=== PATIENT | male | born 1985 | race Caucasian/White ===

== ENCOUNTER 2018-02-22 22:42 | Emergency (ER) | payer OTHER ==
[2018-02-22] MEDS ORDERED: Cyclobenzaprine 10 MG ONE (23:10)
[2018-02-22] MEDS ORDERED: TORAdol 30 mg Injection ONE (23:10)
--- NOTE | 2018-02-22 23:12 | ERPHSYRPT ---
- History of Present Illness Time Seen by Provider: 02/22/18 23:01 Source: patient Exam Limitations: no limitations Patient Subjective Stated Complaint: pt states he was tarring a roof at approx 2044 this pm, stepped back and tripped over tar bucket, fell backwards off roof , approx 9', landing on lower back/sacrum; co pain radiating down both legs. Triage Nursing Assessment: pt a&o x3; skin p, w, & d; ambulated to room per self ; no obvious deformity noted; denies any loss of feeling/sensation in either leg / Physician History: 33 y/o male comes to the ER with complaints of lower back pain and right elbow pain after falling off a roof that was 10 feet high. Pt describes the pain as sharp, constant, 8/10, worse with movement, with radiation down his legs and not relieved by tylenol. No LOC. Occurred: just prior to arrival Reason for Fall: slipped, fell from height Injuries/Pain Location: upper extremity, back Loss of Consciousness: no loss of consciousness Quality: sharpness Severity of Pain-Max: severe Severity of Pain-Current: severe Modifying Factors: Improves With: nothing Associated Symptoms (Fall): denies symptoms Allergies/Adverse Reactions: coconut Allergy (Severe, Verified 02/22/18 22:58) Difficulty Breathing Penicillins Allergy (Severe, Verified 02/22/18 22:58) Difficulty Breathing Hx Tetanus, Diphtheria Vaccination/Date Given: No Hx Influenza Vaccination/Date Given: No Hx Pneumococcal Vaccination/Date Given: No Immunizations Up to Date: No - Review of Systems Constitutional: No Fever, No Chills Eyes: No Symptoms Ears, Nose, & Throat: No Symptoms Respiratory: No Cough, No Dyspnea Cardiac: No Chest Pain, No Edema, No Syncope Abdominal/Gastrointestinal: No Abdominal Pain, No Nausea, No Vomiting, No Diarrhea Genitourinary Symptoms: No Dysuria Musculoskeletal: Back Pain, Joint Pain, No Neck Pain Skin: No Rash Neurological: No Dizziness, No Focal Weakness, No Sensory Changes Psychological: No Symptoms Endocrine: No Symptoms All Other Systems: Reviewed and Negative - Past Medical History Pertinent Past Medical History: No - Past Surgical History Past Surgical History: Yes Musculoskeletal: Orthopedic Surgery - Social History Smoking Status: Current every day smoker How long have you smoked: 23 Exposure to second hand smoke: No Drug Use: none Patient Lives Alone: No - Nursing Vital Signs Nursing Vital Signs: Initial Vital Signs Temperature 98.5 F 02/22/18 22:48 Pulse Rate 62 02/22/18 22:48 Respiratory Rate 16 02/22/18 22:48 Blood Pressure 152/87 02/22/18 22:48 O2 Sat by Pulse Oximetry 98 02/22/18 22:48 Pain Scale Pain Intensity 0 - Curran Coma Score Best Eye Response (Tasha): (4) open spontaneously Best Verbal Response (Curran): (5) oriented Best Motor Response (Curran): (6) obeys commands Tasha Total: 15 - Physical Exam General Appearance: no apparent distress, alert Head Injury: no evidence of injury Eye Exam: PERRL/EOMI ENT Exam: airway nml Neck Exam: normal inspection, No tenderness Respiratory/Chest Exam: normal breath sounds, No chest tenderness, No respiratory distress Cardiovascular Exam: normal heart sounds, regular rate/rhythm Gastrointestinal Exam: soft, No tenderness, No distention, No guarding, No ecchymosis Back Exam: decreased range of motion, point tenderness, No vertebral tenderness Extremity Exam: normal inspection, pelvis stable, limited range of motion, pain with movement, tenderness, No deformities Neurologic Exam: alert, 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, cooperative, sensation nml, No motor deficits Skin Exam: normal color, warm, dry SpO2: 98 Oxygen Delivery: Room Air - Course Nursing assessment & vital signs reviewed: Yes Ordered Tests: Active Orders 24 hr Category Date Time Status CERVICAL SPINE WO CONTRAST [CT] Stat Exams 02/22/18 23:06 Taken ELBOW (2 VIEW) Stat Exams 02/22/18 23:06 Taken HEAD WITHOUT CONTRAST [CT] Stat Exams 02/22/18 23:06 Taken LUMBAR SPINE W/O [CT] Stat Exams 02/22/18 23:06 Taken THORACIC SPINE W/O CONTRAST [CT] Stat Exams 02/22/18 23:06 Taken Medication Summary Discontinued Medications Generic Name Dose Route Start Last Admin Trade Name Freq PRN Reason Stop Dose Admin Cyclobenzaprine HCl 10 mg 02/22/18 23:08 02/22/18 23:15 Cyclobenzaprine 10 Mg PO 02/22/18 23:09 10 mg STAT ONE Administration Cyclobenzaprine HCl Confirm 02/22/18 23:10 Cyclobenzaprine 10 Mg Administered 02/22/18 23:11 Dose 10 mg .ROUTE .STK-MED ONE Ketorolac Tromethamine 60 mg 02/22/18 23:08 02/22/18 23:15 Toradol 30 Mg Injection IM 02/22/18 23:09 60 mg STAT ONE Administration Ketorolac Tromethamine Confirm 02/22/18 23:10 Toradol 30 Mg Injection Administered 02/22/18 23:11 Dose 60 mg .ROUTE .STK-MED ONE - Progress Progress: improved Progress Note: 02/23/18 00:[address] scan head, cervical spine, thoracic spine and lumbar spine are all within normal limits. The x ray of the elbow is also negative. Pt will be d/c home on toradol and flexeril. - Departure Time of Disposition: 00:49 Departure Disposition: Home Clinical Impression: Back pain Qualifiers: Back pain location: low back pain Chronicity: acute Back pain laterality: midline Sciatica presence: without sciatica Qualified Code(s): M54.5 - Low back pain Condition: Stable Critical Care Time: No Instructions: Low Back Pain (DC) Additional Instructions: Follow up with your primary care doctor if you should continue to have pain. Forms: Work/School Release Form Prescriptions: Cyclobenzaprine HCl [Flexeril] 5 mg PO TID PRN #10 tablet PRN Reason: Muscle Spasms Ketorolac Tromethamine [Toradol] 10 mg PO QID PRN #15 tablet PRN Reason: Pain
[2018-02-22] MEDS: Cyclobenzaprine 10 MG PO ONE (23:15)
[2018-02-22] MEDS: TORAdol 30 mg Injection IM ONE (23:15)
[2018-02-23 00:13] VITALS: BP 135/96; PULSE 56
[2018-02-23 00:52] VITALS: O2SAT 98
--- NOTE | 2018-02-23 08:47 | XRAY ---
Indication: Pain following fall from roof. Multiple contiguous axial images obtained through the head without contrast. Comparison: None Normal appearing brain parenchyma, ventricles, and bony calvarium. Moderate mucosal thickening of the visualized right maxillary and lesser degree right ethmoid sinuses. Mastoid air cells are clear. Impression: No acute intracranial abnormalities. Incidental paranasal sinus disease. Comment: Preliminary interpretation was made by [facility]. No discrepancy. CT DI 51.77
--- NOTE | 2018-02-23 08:49 | XRAY ---
Indication: Pain following fall from roof. Multiple contiguous axial images obtained through the cervical spine. Sagittal and coronal reformatted images obtained. Comparison: None Axial images negative for acute fracture, suspicious bony lesions, or spinal canal stenosis. Sagittal and coronal reformatted images demonstrate normal alignment. Disc spaces maintained. No acute compression fracture, subluxation, or jumped facet. Normal-appearing craniocervical junction. Visualized noncontrasted soft tissues unremarkable. Moderate mucosal thickening of the visualized right maxillary sinus. CT head and CT thoracic spine reported separately. Impression: 1. Negative acute fracture/subluxation. 2. Incidental paranasal sinus disease. Comment: Preliminary interpretation was made by [facility]. No discrepancy. CT DI 104.46
--- NOTE | 2018-02-23 08:51 | XRAY ---
Indication: Pain following fall from roof. Multiple contiguous axial images obtained through the thoracic spine. Sagittal and coronal reformatted images obtained. Comparison: None Axial images negative for acute fracture, suspicious bony lesions, or spinal canal stenosis. Sagittal and coronal reformatted images demonstrate normal alignment. Disc spaces maintained. No acute compression fracture or subluxation. Visualized noncontrasted soft tissues demonstrates mediastinal, left hilar, and left lung calcified granulomas. Mild bilateral dependent lung atelectasis. CT cervical and CT lumbar spine reported separately. Impression: 1. Negative acute fracture/subluxation. 2. Incidental evidence for old granulomatous disease. Comment: Preliminary interpretation was made by [facility]. No discrepancy. CT DI 138.58
--- NOTE | 2018-02-23 08:53 | XRAY ---
Indication: Pain following fall from roof. Multiple contiguous axial images obtained through the lumbar spine. Sagittal and coronal reformatted images obtained. Comparison: None Axial images negative for acute fracture, suspicious bony lesions, or spinal canal stenosis. Facets are symmetric. Sagittal and coronal reformatted images demonstrate normal alignment. Disc spaces maintained. No acute compression fracture or subluxation. Visualized noncontrasted soft tissues unremarkable. CT thoracic spine reported separately. Impression: Negative acute fracture/subluxation. Comment: Preliminary interpretation was made by [facility]. No discrepancy. CT DI 80.41
--- NOTE | 2018-02-23 08:53 | XRAY ---
Indication: Pain following fall from roof. Comparison: None 2 views of the right elbow obtained. No bony, articular, or soft tissue abnormalities.
== END 2018-02-23 00:57 | disposition home or self-care (01) ==
LOC: ED 22:42
DX: M54.5 Low back pain (principal); M79.605 Pain in left leg; M79.604 Pain in right leg; M25.521 Pain in right elbow; W17.89XA Other fall from one level to another, initial encounter; Y93.89 Activity, other specified; Y92.89 Other specified places as the place of occurrence of the external cause; Y99.9 Unspecified external cause status
CPT/HCPCS: 70450; 72125; 72128; 72131; 73070; 96372; 99284; J1885; A9270-GY

== ENCOUNTER 2021-06-20 18:37 | Emergency (ER) | payer OTHER ==
[2021-06-20 18:55] VITALS: BP 144/84; PULSE 68; O2SAT 96
[2021-06-20] MEDS ORDERED: BACTRIM DS TABLET PO STA (19:11)
--- NOTE | 2021-06-20 19:13 | ERPHSYRPT ---
- History of Present Illness Time Seen by Provider: 06/20/21 18:50 Source: patient Exam Limitations: no limitations Patient Subjective Stated Complaint: cyst to center of chest Triage Nursing Assessment: pt to ED c/o cyst to center of chest which he noticed Thursday. states he and his got some drainage out of it thursday and he was feeling better. today "it felt inflammed" and he attempted to get more drainage and could not. attempted to call dermatologists offices in [place] but was not able to get in so came to ED for eval. Physician History: Patient is a 36-year-old male presents to our ED for evaluation of draining abscess to his chest. Patient observed the abscess on Thursday 5 days ago. Patient states he put the hair around it thinking it was an infected hair follicle. The abscess then became larger and began to drain spontaneously. The abscess is currently draining. Patient attempted to contact a office rn in [place] however he was unable to do so. He has no systemic manifestations. No chest pain. No shortness of breath. No fever. No nausea or vomiting. Patient is otherwise healthy. Symptoms are mild to moderate in intensity. No specific worsening improving factors. He voices no other complaints or concerns at this time. Patient declined pain medication. Timing/Duration: day(s) (5 days ago) Severity: moderate Modifying Factors: Improves With: nothing Associated Symptoms: denies symptoms Allergies/Adverse Reactions: coconut Allergy (Severe, Verified 06/20/21 18:55) Difficulty Breathing Penicillins Allergy (Severe, Verified 06/20/21 18:55) Difficulty Breathing ketorolac [From Toradol] Allergy (Verified 06/20/21 18:55) Hives Hx Tetanus, Diphtheria Vaccination/Date Given: No Hx Influenza Vaccination/Date Given: No Hx Pneumococcal Vaccination/Date Given: No Immunizations Up to Date: No Travel Risk - International Travel Have you traveled outside of the country in past 3 weeks: No - Coronavirus Screening Are you exhibiting any of the following symptoms?: No Close contact with a COVID-19 positive Pt in past 14-21 Days: No - Vaccine Status Have you recieved a Covid-19 vaccination: No - Review of Systems Constitutional: No Symptoms, No Fever, No Chills Eyes: No Symptoms Ears, Nose, & Throat: No Symptoms Respiratory: No Symptoms, No Cough, No Dyspnea Cardiac: No Symptoms, No Chest Pain, No Edema, No Syncope Abdominal/Gastrointestinal: No Symptoms, No Abdominal Pain, No Nausea, No Vomi ting, No Diarrhea Genitourinary Symptoms: No Symptoms, No Dysuria Musculoskeletal: No Symptoms, No Back Pain, No Neck Pain Skin: No Symptoms, No Rash Neurological: No Symptoms, No Dizziness, No Focal Weakness, No Sensory Changes Psychological: No Symptoms Endocrine: No Symptoms Hematologic/Lymphatic: No Symptoms Immunological/Allergic: No Symptoms All Other Systems: Reviewed and Negative - Past Medical History Pertinent Past Medical History: No - Past Surgical History Past Surgical History: Yes Musculoskeletal: Orthopedic Surgery Male Surgical History: Vasectomy Other Surgical History: vasectomy reversal - Social History Smoking Status: Current every day smoker How long have you smoked: 23 Exposure to second hand smoke: No Drug Use: none Patient Lives Alone: No - Nursing Vital Signs Nursing Vital Signs: Initial Vital Signs Temperature 97.8 F 06/20/21 18:46 Pulse Rate 68 06/20/21 18:46 Respiratory Rate 18 06/20/21 18:46 Blood Pressure 144/84 06/20/21 18:46 O2 Sat by Pulse Oximetry 96 06/20/21 18:46 Pain Scale Pain Intensity 6 - Physical Exam General Appearance: no apparent distress, alert Eye Exam: PERRL/EOMI, eyes nml inspection Ears, Nose, Throat Exam: normal ENT inspection, TMs normal, pharynx normal, moist mucous membranes Neck Exam: normal inspection, non-tender, supple, full range of motion Respiratory Exam: normal breath sounds, lungs clear, airway intact, No respiratory distress Cardiovascular Exam: regular rate/rhythm, normal heart sounds, normal peripheral pulses Gastrointestinal/Abdomen Exam: soft, normal bowel sounds, No tenderness, No mass Back Exam: normal inspection, normal range of motion, No CVA tenderness, No vertebral tenderness Extremity Exam: normal inspection, normal range of motion, pelvis stable Neurologic Exam: alert, 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, cooperative, normal mood/affect, nml cerebellar function, nml station & gait, sensation nml, No motor deficits Skin Exam: normal color, warm, dry, other (There is a draining abscess just left of the midline anterior chest wall. There is a rim of cellulitis.), No rash Lymphatic Exam: No adenopathy SpO2 Interpretation: normal SpO2: 96 O2 Delivery: Room Air - Course Nursing assessment & vital signs reviewed: Yes Ordered Tests: Medication Summary Discontinued Medications Generic Name Dose Route Start Last Admin Trade Name James PRN Reason Stop Dose Admin Trimethoprim/Sulfamethoxazole 1 tab 06/20/21 19:11 Bactrim Ds Tablet PO 06/20/21 19:12 STAT STA - Progress Progress: improved Progress Note: Patient received a dose of Bactrim in our ED to treat the cellulitis and draining abscess. Patient is pen allergic. No indication for further work-up at this time. Patient agrees to follow-up with primary care doctor within 48 hours for reevaluation. 06/20/21 19:15 Counseled pt/family regarding: diagnosis, need for follow-up - Departure Departure Disposition: Home Clinical Impression: Abscess, Cellulitis Condition: Stable Critical Care Time: No Referrals: JANICE PINEDA MD [ACTIVE STAFF] - Additional Instructions: Discharge/Care Plan LILIA DOUGLASS was seen on 06/20/21 in the Emergency Room. The patient was counseled regarding Diagnosis,Lab results, Imaging studies, need for follow up and when to return to the Emergency Room. Prescriptions given: Discharge Note I have spoken with the patient and/or caregivers. I have explained the patient's condition, diagnosis and treatment plan based on the information available to me at this time. I have answered the patient's and/or caregiver's questions and addressed any concerns. The patient and/or caregivers have as good understanding of the patient's diagnosis, condition and treatment plan as can be expected at t his point. The vital signs have been stable. The patient's condition is stable and appropriate for discharge from the emergency department. The patient will pursue further outpatient evaluation with the primary care physician or other designated or consulting physician as outlined in the discharge instructions. The patient and/or caregivers are agreeable to this plan of care and follow-up instructions have been explained in detail. The patient and/or caregivers have received these instruction. The patient/and or caregivers are aware that any significant change in condition or worsening of symptoms should prompt an immediate return to this or the closest emergency department or call 911. Prescriptions: Smz/Tmp Ds Tablet [Bactrim Ds Tablet] 1 udtab PO BID 7 Days #14 tablet
[2021-06-20] MEDS ORDERED: BACTRIM DS TABLET PO ONE (19:25)
== END 2021-06-20 19:56 | disposition home or self-care (01) ==
LOC: ED 18:37
DX: L02.91 Cutaneous abscess, unspecified (principal); L03.90 Cellulitis, unspecified
CPT/HCPCS: 99283; A9270-GY

== ENCOUNTER 2021-10-26 22:42 | Emergency (ER) | payer OTHER ==
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
[2021-10-26 23:57] LABS: Absolute Neutrophil Ct (ANC) 4.21 (1.4-6.9); Basophil (Absolute #) 0.02 (0-0.4); Eosinophil % 2.4 % (0.00-5.0); Eosinophil (Absolute #) 0.21 (0-0.5); Hematocrit 45.9 % (42-50); Hemoglobin 14.8 gm/dl (12.5-18.0); Lymphocyte (Absolute #) 3.35 (1.0-4.6); Lymphocytes % 37.8 % (24.0-44.0); Mean Cell Volume 91.3 fl (78-100); Mean Corpuscular Hemoglobin 29.4 pg (26-32); Mean Corpuscular Hgb Concent. 32.2 g/dl (32-36); Mean Platelet Volume 9.6 fl (7.5-11.0); Monocyte (Absolute #) 1.07 (0.0-1.3); Monocytes % 12.1 % (0.0-12.0); Neutrophil % 47.5 % (36.0-66.0); Platelet Count 376 K/mm3 (150-450); Red Blood Count 5.03 M/mm3 (4.1-5.6); Red Cell Distribution Width 14.1 % (11.5-14.0); White Blood Count 8.9 K/mm3 (4.0-10.5)
[2021-10-27 00:01] LABS: ALBUMIN 4.7 g/dL (3.5-5.0); ALKALINE PHOSPHATASE 98 U/L (38-126); ANION GAP 14.5 MEQ/L (5-15); BLOOD UREA NITROGEN 10 mg/dL (9-20); CHLORIDE 101 mmol/L (98-107); Calcium 10.2 mg/dL (8.4-10.2); Carbon Dioxide 30 mmol/L (22-30); Creatinine 1 0.98 mg/dL (0.66-1.25); EST GLOMERULAR FILTRATION RATE > 60.0 ML/MIN; Glucose 105 mg/dL (74-106); Potassium 4.1 mmol/L (3.5-5.1); SGOT/AST 21 U/L (17-59); SGPT/ALT 16 U/L (0-50); SODIUM 141 mmol/L (137-145); Total Protein 7.9 g/dL (6.3-8.2)
[2021-10-27] MEDS ORDERED: DELTASONE 20 MG PO ONE (00:01)
[2021-10-27] MEDS ORDERED: DELTASONE 20 MG ONE (00:10)
[2021-10-27] MEDS ORDERED: Omnicef 125 MG/5 ML SUSP ONE (00:15)
[2021-10-27 00:30] VITALS: BP 131/88; PULSE 53; O2SAT 97
--- NOTE | 2021-10-27 08:01 | XRAY ---
Indication: Facial weakness. Multiple contiguous axial images obtained through the head without contrast. Comparison: February 22, 2018. Normal appearing brain parenchyma, ventricles, and bony calvarium. Visualized paranasal sinuses and mastoid air cells are clear. Impression: Continued normal CT head without contrast exam. Comment: Preliminary interpretation made by [facility]. No critical discrepancy.
== END 2021-10-27 00:31 | disposition home or self-care (01) ==
LOC: ED 22:42
DX: G51.0 Bell's palsy (principal); Z72.0 Tobacco use; Z79.52 Long term (current) use of systemic steroids
CPT/HCPCS: 36000; 36415; 70450; 80053; 84484; 85025; 93005; 99284; A9270-GY

== ENCOUNTER 2023-12-13 22:48 | Emergency (ER) | payer OTHER ==
[2023-12-13 23:43] VITALS: TEMP 98.7
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
[2023-12-13] MEDS ORDERED: Zofran 4 MG/2 ML VIAL ONE (23:57)
[2023-12-13] MEDS ORDERED: MORPHINE SULFATE 4 MG INJ ONE (23:58)
[2023-12-13] MEDS ORDERED: Sodium Chloride 0.9% 1000 ML 1,000 ML ONE (23:58)
[2023-12-14] MEDS: MORPHINE SULFATE 4 MG INJ IV ONE (00:03)
[2023-12-14] MEDS: Sodium Chloride 0.9% 1000 ML 1,000 ML IV SCH (00:03)
[2023-12-14] MEDS: Zofran 4 MG/2 ML VIAL IV ONE (00:03)
[2023-12-14 00:17] LABS: Absolute Neutrophil Ct (ANC) 5.99 x10^3/uL (1.4-6.9); BASOPHIL % 0.4 % (0.0-0.4); Basophil (Absolute #) 0.04 x10^3/uL (0-0.4); Eosinophil % 2.4 % (0.00-5.0); Eosinophil (Absolute #) 0.25 x10^3/uL (0-0.5); Hematocrit 42.2 % (42-50); Hemoglobin 13.8 g/dL (12.5-18.0); IMMATURE GRAN # 0.03 x10^3u/L (0.00-0.03); IMMATURE GRAN % 0.3 % (0.00-0.4); Lymphocyte (Absolute #) 2.71 x10^3/uL (1.0-4.6); Lymphocytes % 26.3 % (24.0-44.0); Mean Cell Volume 91.3 fL (78-100); Mean Corpuscular Hemoglobin 29.9 pg (26-32); Mean Corpuscular Hgb Concent. 32.7 g/dL (32-36); Mean Platelet Volume 8.9 fL (7.5-11.0); Monocyte (Absolute #) 1.28 x10^3/uL (0.0-1.3); Monocytes % 12.4 % (0.0-12.0); Neutrophil % 58.2 % (36.0-66.0); Platelet Count 302 x10^3/uL (150-450); Red Blood Count 4.62 x10^6/uL (4.1-5.6); White Blood Count 10.3 x10^3/uL (4.0-10.5)
[2023-12-14 00:30] LABS: ALBUMIN 4.2 g/dL (3.5-5.0); ANION GAP 11.5 MEQ/L (5-15); BILIRUBIN,TOTAL 0.3 mg/dL (0.2-1.3); Calcium 9.4 mg/dL (8.4-10.2); Creatinine 1 1.15 mg/dL (0.66-1.25); EST GLOMERULAR FILTRATION RATE 84.1 ML/MIN; Potassium 4.3 mmol/L (3.5-5.1); Total Protein 7.7 g/dL (6.3-8.2)
[2023-12-14 00:43] LABS: Appearance Clear (Clear); Bilirubin Negative (Negative); Blood Negative (Negative); Glucose, Urine Negative (Negative); Ketones Negative (Negative); Leukocyte Esterase Negative (Negative); Nitrite Negative (Negative); Ph 6.5 (4.6-8.0); Protein,Urine Dip Negative (Negative); Specific Gravity <=1.005 (1.005-1.030); Urobilinogen 0.2 mg/dL (0.2)
[2023-12-14 00:55] LABS: Bacteria None Seen /HPF (None Seen); Epithelial Cells None Seen /HPF (None Seen); Hyaline Casts NONE SEEN /LPF (0-2); RBC 0-2 /HPF (0-5); WBC 0-2 /HPF (0-5)
[2023-12-14 01:03] LABS: ADD URINE CULTURE? NO (NO)
--- NOTE | 2023-12-14 01:21 | XRAY ---
CLINICAL HISTORY: pain COMPARISON: None TECHNIQUE: Contiguous axial images were obtained from the level of the diaphragm to the pubic symphysis without intravenous or oral contrast. Coronal and sagittal reconstructions were likewise performed and indicated to increase the sensitivity for detecting clinically relevant pathology. CT scan was performed according to ALARA (as low as reasonably achievable). FINDINGS: The visualized lung bases are clear. Evaluation of the abdominal and pelvic visceral organs is limited without intravenous contrast. The unenhanced liver, pancreas, and adrenal glands are grossly unremarkable. The gallbladder is present. 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 The right kidney is normal in size and attenuation without obvious calcification. There is no hydronephrosis or perinephric stranding. The right ureter is normal in caliber. No adenopathy or fluid collections are seen. No evidence of focal or diffuse bowel wall thickening or evidence of bowel obstruction is seen. The appendix is visualized in the right lower quadrant and appears within normal limits. There is mild to moderate inflammatory fat stranding in the left iliac fossa in paracolic space, surrounding the descending colon, possibly changes of colitis. The aorta is normal in caliber. The urinary bladder is normal in contour. Pelvic viscera are grossly unremarkable. No aggressive appearing osseous lesions are identified. IMPRESSION: 1. 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 3.Mild to moderate inflammatory fat stranding in the left iliac fossa in paracolic space, surrounding the descending colon, possibly changes of colitis. Electronically Signed by: Priyank Pruitt MD. (12/14/2023 01:16:41 EDT)
[2023-12-14] MEDS ORDERED: FLAGYL 500 MG IVPB 500 MG/100 ML BAG IV ONE (01:58)
[2023-12-14] MEDS ORDERED: NORCO 5/325 MG ONE (01:58)
[2023-12-14] MEDS: NORCO 5/325 MG PO ONE (01:59)
[2023-12-14] MEDS: FLAGYL 500 MG IVPB 500 MG/100 ML BAG IV STA (01:59)
[2023-12-14 02:45] VITALS: BP 112/45; PULSE 63; RESP 16; O2SAT 98
== END 2023-12-14 02:43 | disposition home or self-care (01) ==
LOC: ED 22:48
DX: K52.9 Noninfective gastroenteritis and colitis, unspecified (principal); R10.32 Left lower quadrant pain; R11.2 Nausea with vomiting, unspecified; Z72.0 Tobacco use
CPT/HCPCS: 36000; 36415; 74176; 80053; 81001; 82150; 83690; 83735; 85025; 96374; 99284; J2270; J2405; A9270-GY